=== PATIENT | female | born 1935 | race Caucasian/White ===

== ENCOUNTER 2016-05-11 09:45 | Inpatient (IN) | payer MEDICARE ==
[2016-05-11] MEDS ORDERED: FENTANYL 100 MCG/2 ML VIAL IV PRN ×2 (10:01)
[2016-05-11] MEDS ORDERED: HYDROmorphone 1 MG INJECTION IV PRN ×2 (10:01)
[2016-05-11] MEDS ORDERED: LABETALOL 20 MG/4 ML SYRINGE IV PRN (10:01)
[2016-05-11] MEDS ORDERED: MEPERIDINE 25 MG/ML TUBEX IV PRN (10:01)
[2016-05-11] MEDS ORDERED: ONDANSETRON HCL 4 MG ODT TAB PO PRN (10:01)
[2016-05-11] MEDS ORDERED: ONDANSETRON HCL 4 MG/2 ML VIAL IV PRN ×2 (10:01→17:29)
[2016-05-11] MEDS ORDERED: hydrALAZINE 20 MG/ML VIAL IV PRN (10:01)
[2016-05-11 10:23] LABS: AUTOMATED BASOPHIL 0.4 % (0-2); AUTOMATED EOSINOPHIL 1.6 % (0-5); AUTOMATED LYMPH 25.7 % (17-44); AUTOMATED MONOCYTE 10.3 % (3-10); MPV 7.6 fL (7.4-10.4)
[2016-05-11] MEDS ORDERED: ERTAPENEM 1 GM in NS 100 ML IV ONE (10:30)
[2016-05-11 10:37] LABS: BLOOD UREA NITROGEN 14 MG/DL (7-17); CALC CORRECTED 9.3 MG/DL (8.4-10.2); CALCIUM 9.2 MG/DL (8.4-10.2); CALCULATED OSMOLALITY 273 MOs/Kg (270-290); CHLORIDE 103 mEq/L (98-107); GLUCOSE 79 MG/DL (70-99); SODIUM LEVEL 142 mEq/L (137-146); TOTAL PROTEIN 7.2 G/DL (6.3-8.2)
[2016-05-11] MEDS ORDERED: ALVIMOPAN 12 MG CAP PO ONE (11:00)
[2016-05-11] MEDS ORDERED: ONDANSETRON HCL 4 MG/2 ML VIAL IV ONE (12:04)
[2016-05-11] MEDS ORDERED: PROPOFOL 200 MG/20 ML VIAL IV ONE (12:04)
[2016-05-11] MEDS ORDERED: EPHEDrine 50 MG/ML VIAL IM ONE (12:04)
[2016-05-11] MEDS ORDERED: NEOSTIGMINE 1 MG/1 ML (1:1000) INJ 10 ML MDV IM ONE (12:04)
[2016-05-11] MEDS ORDERED: ROCURONIUM 50 MG/5 ML VIAL IV ONE (12:04)
[2016-05-11] MEDS ORDERED: LIDOCAINE 4% 5 ML AMPULE NEB ONE (12:04)
[2016-05-11] MEDS ORDERED: NIMBEX 10 MG/5 ML VIAL IV ONE (12:04)
[2016-05-11] MEDS ORDERED: FENTANYL 100 MCG/2 ML VIAL IV ONE (12:04)
[2016-05-11] MEDS ORDERED: KETOROLAC TROMETH 30 MG/ML VIAL IM ONE (12:04)
[2016-05-11] MEDS ORDERED: MIDAZOLAM 2 MG/2 ML VIAL IV ONE (12:04)
[2016-05-11] MEDS ORDERED: DEXAMETHASONE 4 MG/ML VIAL IV ONE (12:04)
[2016-05-11] MEDS ORDERED: hydrALAZINE 20 MG/ML VIAL IM ONE (12:04)
[2016-05-11] MEDS ORDERED: GLYCOPYRROLATE 1 MG VIAL IM ONE (12:04)
[2016-05-11] MEDS ORDERED: HYDROmorphone 2 MG/ML VIAL IM ONE (12:04)
[2016-05-11] MEDS ORDERED: BUPIVACAINE 0.5% 30 ML VIAL ONE (12:08)
--- NOTE | 2016-05-11 13:28 | HIM.ANES ---
Anesthesia Evaluation & Plan Diagnoses: MALIGNANT NEOPLASM OF RECTUM (05/11/16) Consented Procedure: LAPAROSCOPIC LOW ANTERIOR RESECTION OF COLON-POSSIBLE OPEN - Focused Review of Systems Cardiac History: Yes: Hx Hypertension, Hx Heart Attack (1995), Hx Cardiac Catheterization (2013), Hx Cardiac Disorders, Hx Abnormal Cholesterol/ Hyperlipidemia, Hx Coronary Artery Bypass Graft (1995 CABG X 3) No: Hx Angina, Hx Cardia Arrhythmia, Hx Abdominal Aortic Aneurysm, Hx Congestive Heart Failure, Hx Deep Vein Thrombosis HEENT: Yes: Cataracts (BILATERAL), Hx Vision Problem (WEARING GLASSES), Other HEENT Problems Hx Other HEENT Problems: upper dentures Respiratory: Yes: Hx Snoring No: Hx Sleep Apnea, Hx Home O2, Hx Pneumonia Gastrointestinal: Yes: Hx Gastroesophageal Reflux Disease (Controlled), Hx Gastrointestinal Disorders, Hx Colonoscopy (2015), Hx Endoscopy (UNSURE-- PATIENT THINKS ONE DONE) Neurological/Musculoskeletal: Yes: HX Cerebrovascular Accident (LIGHT 2013), Hx Numbness, Tingling, Weakness in Arms & Legs (TINGLING LEGS), Hx Neurological Disorders No: Hx Migraine Physiological: No Hx Mental/Emotional Disorders Blood/Autoimmune: Yes: Hx Anemia (WITH FIRST ) No: Hx Blood Transfusions, Hx AIDS, Hx Hepatitis (type) Smoking Status: Former smoker Past Social History: Denies: Substance Use Disorder Hx Stress Test (date): Yes (01-19-16) Surgical History: Yes: CABG (1995 CABG X 3), Hip (RIGHT), Other (Hip surgery) No: T&A - Focused Physical Exam NPO since: 05/10/2016 2200 Mallampati: Class II Thyromental Distance: Greater than 3 Neck: Full Range of Motion Dental: Removable Dental Work Cardiovascular/Chest: Normal Respiratory: Lungs clear Any problems with anesthesia, including nausea and vomiting?: No Any relatives with a history of Malignant Hyperthermia?: No Beta Tami given (if appropriate): N/A Other: Problem List Problem Status Onset Abnormal urinalysis Acute Anemia associated with acute blood loss Acute GI bleeding Acute Hematochezia Acute Hypertension Acute Coronary artery disease Chronic CBC/BMP/Other 05/11/16 10:15 05/11/16 10:15 Allergies Allergy/AdvReac Type Severity Reaction Status Date / Time oxycodone Allergy Nausea/Vomi Verified 05/11/16 12:07 ting Home Medications Medication Instructions Recorded Last Taken Type Atorvastatin Calcium [Lipitor] 80 mg PO QHS 11/24/15 01/19/16 19:00 History Pantoprazole Sodium 40 mg PO DAILY #30 tab 11/26/15 05/09/16 Rx Atenolol [Tenormin] 50 mg PO DAILY 01/09/16 05/10/16 23:00 History Clopidogrel Bisulfate [Plavix] 75 mg PO DAILY 01/09/16 05/06/16 History Meloxicam [Mobic] 7.5 mg PO BID 04/27/16 05/09/16 History Height and Weight Patient's height 5 ft 7 in Patient's weight 57.153 kg BMI 21.7 - Anesthetic Plan Anesthesia Type: General ASA Class: 3 -: I have examined this patient and reviewed the medical record. The patient has been assessed prior to anesthesia. Risks and benefits of anesthesia and anesthetic technique options have been discussed and all questions answered. The patient accepts the risk and desires me to proceed with the planned anesthetic.
[2016-05-11 13:30] LABS: LEUKOCYTES/URINE NEG (NEGATIVE); NITRITE/URINE NEG (NEGATIVE); RBC/URINE 0-2 (0-5); URINE OCCULT BLOOD NEG (NEG/TRACE); WBC/URINE 0-2 (0-5)
--- NOTE | 2016-05-11 15:21 | HIMOPRPT ---
DATE OF PROCEDURE: 05/11/16 PREOPERATIVE DIAGNOSIS: Rectal cancer, for the clinical staging please see the history and physical POSTOPERATIVE DIAGNOSIS: Same, final pathology pending PROCEDURE: Laparoscopic low anterior colon resection with primary anastomosis, laparoscopic mobilization of splenic flexure, rigid proctosigmoidoscopy with tattooing of rectal area SURGEON: David Hinojosa M.D. ANESTHESIA: General anesthesia SPECIMEN: Sigmoid colon and portion of proximal rectum pathology. SPONGE COUNT: Correct. PACKINGS AND DRAINS: Telfa packing to the upper midline abdominal incision. PATIENT CONDITION: Stable. ESTIMATED BLOOD LOSS: 75 cc. OPERATIVE FINDINGS AND TECHNIQUE: With consent, the patient was brought to the operative suite, placed in supine position. Following general anesthesia, Dalton catheter was placed. An orogastric tube was placed. Rigid proctosigmoidoscopy was performed. At approximately 15 cm up there is a small polypoid area. There is also some puckering of the rectal mucosa. There is no evidence of any large mass lesion. The area near the polypoid lesion was tattooed with Diana ink. The abdomen and perineal/anal areas were prepped and draped in usual fashion. Upper midline incision was made. Dissection was carried along on the musculofascial layers down the level of the fascia and peritoneal cavity was entered under direct vision. The GelPort apparatus was placed. Abdominal cavity was insufflated with carbon dioxide. Additional trocars were then placed. A 12-mm trocar was placed in the right lower quadrant and a 5-mm trocar was placed in the right suprapubic area. In each case, skin incision was made with skin knife and trocars in the peritoneal cavity under videoscopic guidance. Liver was palpably normal as was the gallbladder. Visualized portion of stomach was palpably normal as well. Appendix appeared normal. Uterus and ovaries appeared normal. Visualized portion of the small intestine was normal. The right, transverse, and left colon appeared normal as well. The tattooed area was in the rectal area just below the sacral promontory. The inferior mesenteric vessels/sigmoid vessels were isolated. Left ureter was identified during its course and was not traumatized during the course of dissection. Inferior mesenteric/sigmoid vessels were stapled across using the laparoscopic [place] stapling device with a vascular load. Mobilization of splenic flexure was then undertaken, this proceeded without incident. Following this, pelvic dissection was undertaken. Perineum was scored using Harmonic scalpel. Distal dissection was taken down towards the rectal vascular stalks which were ligated with the Harmonic scalpel. The proposed area of transection was well below the tattoo area. It measured at least 5 cm below the tattooed area grossly. Mesenteric vessels were ligated and divided with a combination of the Harmonic Scalpel as well the vascular stapling device. The rectum was stapled across using the stapling device as well. The colon was exteriorized. Proximal resection margin was identified and was freed up. Pursestring device was placed around this. Sutures were placed to make the pursestring. Colon was cut, and specimen was passed off as the sigmoid colon. Serial sizing was then undertaken with the sizing device, the 29 EEA sizer fitted well and a 29 EEA stapling device was chosen for the anastomosis. The anvil was placed in the proximal colon and the pursestring device was tied around this. Following this, the assistant engineer went to the perineal area, and serial dilatation of the rectal stump was accomplished using the sizers. The 29 EEA stapling device was then placed up the anal canal. The post was brought out to just above the staple line of the rectal stump. The post was attached the anvil. The stapler device was closed, fired, and brought up the anal area. The 2 excellent complete donuts were noted. The pelvic area then irrigated with saline and the rigid proctosigmoidoscope was then placed through the anal verge, and air water leak test was performed, showing no evidence of any bubbles, no evidence of any air leak. Pelvic area was suctioned free. Abdominal cavity had been irrigated and dried . There was no bloody drainage. Hemostasis was achieved. Seprafilm was placed in the abdominal cavity. The fascia of the 12 mm trocar site was closed with 0 Vicryl suture in interrupted fashion. The midline upper abdominal incision and musculofascial layers were closed using 1 PDS loop in a running fashion. Wound was irrigated and dried. Each incision was injected with 0.5% Marcaine. Skin approximation of all wounds was accomplished using 4 O Monocryl in a subcuticular fashion. Dermabond , 2 x 2 gauze, and Tegaderm dressings were applied to all the wounds. Findings as described. At termination of procedure, all instrument, sponge, and needle counts were correct. Final pathology is pending.
[2016-05-11] MEDS ORDERED: MORPHINE PCA 50 ML IV ONE (16:50)
--- NOTE | 2016-05-11 17:05 | SC.ANESPOS ---
Post-Anesthesia Note LOC: Fully Awake Post-Anesthesia Assessment: Awake, Returned to Baseline, Hemodynamically Stable , Pain Control Adequate Phase I & II Recovery Complete: Yes Apparent Anesthesia Complication: No : N - Vital Signs Blood Pressure: 186/86 Pulse: 74 Resp Rate: 10 O2 Sat: 98 Temp: 97.1 F
[2016-05-11] MEDS ORDERED: IBUPROFEN 600 MG TAB PO PRN (17:29)
[2016-05-11] MEDS ORDERED: MORPHINE PCA 50 ML IV PRN (17:29)
[2016-05-11] MEDS ORDERED: ACETAMINOPHEN 325 MG/TAB TABLET PO PRN (17:29)
[2016-05-11] MEDS ORDERED: ZOLPIDEM TARTRATE 5 MG TAB PO PRN (17:29)
[2016-05-11] MEDS ORDERED: PROMETHAZINE 25 MG/ML VIAL IV PRN (17:29)
[2016-05-11] MEDS ORDERED: DIPHENHYDRAMINE 25 MG CAP PO PRN (17:29)
[2016-05-11] MEDS ORDERED: LORAZEPAM 2 MG/ML VIAL IV PRN (17:29)
[2016-05-11] MEDS ORDERED: HYDROCODONE 5 MG/ACETAMIN 325 MG TAB PO PRN (17:29)
[2016-05-11] MEDS ORDERED: Aluminum;Magnesium;Simethicone 30 ML UDC PO PRN (17:29)
[2016-05-11] MEDS ORDERED: ACETAMINOPHEN 650 MG SUPP PR PRN (17:29)
[2016-05-11] MEDS: LR 1,000 ML IV SCH (17:50)
[2016-05-11 18:27] VITALS: BMI 20.3
[2016-05-11] MEDS: Famotidine 20 mg/50 ml RTU 20 MG/50 ML IVB IV SCH (18:37)
[2016-05-11] MEDS ORDERED: Vaccine Screening Complete SCH (19:00)
[2016-05-12] MEDS: ATORVASTATIN 80 MG TAB PO SCH ×2 (03:20→21:28)
[2016-05-12] MEDS: ENOXAPARIN 40 MG/0.4 ML PFS SQ SCH (03:27)
[2016-05-12] MEDS: Famotidine 20 mg/50 ml RTU 20 MG/50 ML IVB IV SCH ×2 (06:33→17:08)
[2016-05-12 07:41] LABS: MPV 7.6 fL (7.4-10.4)
[2016-05-12] MEDS: LR 1,000 ML IV SCH ×3 (07:49→21:54)
[2016-05-12] MEDS: ATENOLOL 50 MG TAB PO SCH (08:05)
[2016-05-12] MEDS: ALVIMOPAN 12 MG CAP PO SCH ×2 (08:05→21:28)
[2016-05-12 08:08] LABS: BLOOD UREA NITROGEN 16 MG/DL (7-17); CALCIUM 8.8 MG/DL (8.4-10.2); CALCULATED OSMOLALITY 268 MOs/Kg (270-290); CHLORIDE 101 mEq/L (98-107); GLUCOSE 160 MG/DL (70-99); SODIUM LEVEL 137 mEq/L (137-146)
--- NOTE | 2016-05-12 09:57 | PCM.SURGRO ---
- Subjective Post Op Day: 1 Patient: Reports: Still having pain, Nausea, Afebrile. Denies: Vomiting, Shortness of breath - Objective / Physical Exam Vital Signs: Temperature: 97.9 F (05/12/16 09:18) HR: 70 (05/12/16 09:18)RR: 18 (05/12/16 09: 18) BP: 163/77 (05/12/16 09:18)Pulse Ox: 96 (05/12/16 09:18) General: Alert Respiratory: Normal - CTA Cardiovascular: Regular rate and rhythm Gastrointestinal: Soft, Bowel Sounds, Tender (Mild and diffuse without rebound) . negative: Distended Laboratory/Diagnostics Reviewed: Laboratory Results - last 24 hr 05/11/16 05/11/16 05/11/16 10:15 10:15 10:15 WBC 5.6 RBC 4.42 Hgb 12.1 Hct 37.1 MCV 84 MCH 27.5 MCHC 32.8 L RDW 16.8 H Plt Count 252 MPV 7.6 Neut % (Auto) 62.0 Lymph % (Auto) 25.7 Lynn % (Auto) 10.3 H Eos % (Auto) 1.6 Baso % (Auto) 0.4 Absolute Neuts (auto) 3.47 Absolute Lymphs (auto) 1.40 Sodium 142 Potassium 3.6 Chloride 103 Carbon Dioxide 29 Anion Gap 14 BUN 14 Creatinine 0.90 Estimated GFR (MDRD) > 60 Glucose 79 Calculated Osmolality 273 Calcium 9.2 Corrected Calcium 9.3 Total Bilirubin 1.3 AST 26 ALT 34 Alkaline Phosphatase 88 Total Protein 7.2 Albumin 3.9 Urine Color Urine Clarity Urine pH Ur Specific [place] Urine Protein Urine Glucose (UA) Urine Ketones Urine Occult Blood Urine Nitrite Urine Bilirubin Urine Urobilinogen Ur Leukocyte Esterase Urine RBC Urine WBC Urine Bacteria Urine Mucus Blood Type O POSITIVE Antibody Screen Negative 05/11/16 05/12/16 05/12/16 12:25 07:05 07:05 WBC 7.6 RBC 3.59 L Hgb 9.9 L D Hct 30.1 L MCV 84 MCH 27.6 MCHC 33.0 RDW 16.2 H Plt Count 199 MPV 7.6 Neut % (Auto) Lymph % (Auto) Lynn % (Auto) Eos % (Auto) Baso % (Auto) Absolute Neuts (auto) Absolute Lymphs (auto) Sodium 137 Potassium 3.8 Chloride 101 Carbon Dioxide 26 Anion Gap 14 BUN 16 Creatinine 0.60 Estimated GFR (MDRD) > 60 Glucose 160 H Calculated Osmolality 268 L Calcium 8.8 Corrected Calcium Total Bilirubin AST ALT Alkaline Phosphatase Total Protein Albumin Urine Color Yellow Urine Clarity Hazy Urine pH 5.0 Ur Specific [place] 1.025 Urine Protein Neg Urine Glucose (UA) Neg Urine Ketones 2+ H Urine Occult Blood Neg Urine Nitrite Neg Urine Bilirubin Neg Urine Urobilinogen <2.0 Ur Leukocyte Esterase Neg Urine RBC 0-2 Urine WBC 0-2 Urine Bacteria 1+ H Urine Mucus Mod H Blood Type Antibody Screen - Assessment and Plan (1) Rectal cancer Resolved C20 - MALIGNANT NEOPLASM OF RECTUM Present on Admission: Yes Comment/Plan: Postop day 1. From laparoscopic low anterior colon resection with primary anastomosis. She is recovering quite well. She is off oxygen. Continue IV fluid hydration. Continue REAL ESTATE APPRAISER control for pain. Continue mechanical and chemo prophylaxis for DVT prevention. Get Dalton out today. Start to mobilize with progressive ambulation. Await return of bowel function. Await final pathology. Follow hemoglobin and hematocrit. Follow her routine blood work and change IV fluids if necessary. Continue medical management of comorbid medical conditions.
[2016-05-12] MEDS ORDERED: CHAPSTICK LIP BALM ONE (21:34)
[2016-05-13] MEDS: Famotidine 20 mg/50 ml RTU 20 MG/50 ML IVB IV SCH ×2 (06:07→17:35)
[2016-05-13] MEDS: ENOXAPARIN 40 MG/0.4 ML PFS SQ SCH (06:09)
[2016-05-13] MEDS: ALVIMOPAN 12 MG CAP PO SCH (07:24)
[2016-05-13] MEDS: ATENOLOL 50 MG TAB PO SCH (07:24)
[2016-05-13 08:26] LABS: BLOOD UREA NITROGEN 16 MG/DL (7-17); CALCIUM 8.8 MG/DL (8.4-10.2); CALCULATED OSMOLALITY 267 MOs/Kg (270-290); CHLORIDE 102 mEq/L (98-107); GLUCOSE 96 MG/DL (70-99); SODIUM LEVEL 138 mEq/L (137-146)
--- NOTE | 2016-05-13 08:36 | PCM.SURGRO ---
- Subjective Post Op Day: 2 Patient: Reports: Still having pain, Flatus, Bowel Movement, Afebrile. Denies: Nausea, Vomiting, Shortness of breath - Objective / Physical Exam Vital Signs: Temperature: 98.3 F (05/13/16 05:20) HR: 87 (05/13/16 05:20)RR: 18 (05/13/16 08: 00) BP: 135/68 (05/13/16 05:20)Pulse Ox: 93 (05/13/16 05:20) General: Alert Respiratory: Normal - CTA Cardiovascular: Regular rate and rhythm Gastrointestinal: Soft, Bowel Sounds, Tender (Predominantly on the left side but without rebound). negative: Distended Laboratory/Diagnostics Reviewed: All labs which were ordered to be done at 6:00 a.m. are still pending today. - Assessment and Plan (1) Rectal cancer Resolved C20 - MALIGNANT NEOPLASM OF RECTUM Present on Admission: Yes Comment/Plan: Postop day 2. Bowel function is returning slowly. Start full liquids today. Await pathology. Continue mechanical and chemo prophylaxis for DVT prevention. The patient has had some mild urinary retention which is not unexpected. Continue to mobilize more and straight catheterization as needed. Unfortunately , even though it was ordered yesterday at 9:54 a.m., the patient has not been ambulating as ordered. This is concerning to me. This can detrimentally affect this patient's care and outcome. This seriousness of this is discussed with nursing today. The patient should be mobilized with ambulation today. Await lab data. Labs were ordered to be done and drawn at 6:00 a.m., however they are all still pending today at 8:35 a.m.. Continue medical management of the patient's comorbid conditions.
[2016-05-13] MEDS ORDERED: Pharmacy Change IV Fluid Rate to KVO XX SCH (09:00)
[2016-05-13] MEDS: LR 1,000 ML IV SCH ×2 (11:55→22:16)
[2016-05-13] MEDS: ATORVASTATIN 80 MG TAB PO SCH (22:18)
[2016-05-14] MEDS: LR 1,000 ML IV SCH (01:19)
[2016-05-14] MEDS: Famotidine 20 mg/50 ml RTU 20 MG/50 ML IVB IV SCH (06:01)
[2016-05-14] MEDS: ENOXAPARIN 40 MG/0.4 ML PFS SQ SCH (06:01)
[2016-05-14 06:47] VITALS: BP 151/79; PULSE 70; TEMP 98.6
[2016-05-14] MEDS: ATENOLOL 50 MG TAB PO SCH (09:20)
--- NOTE | 2016-05-14 10:20 | PCM.DCS92 ---
- Final/Secondary Discharge Diagnosis (1) Rectal cancer Resolved C20 - MALIGNANT NEOPLASM OF RECTUM Present on Admission: Yes Plan/Goal/Comment: Postop day 3. Bowel function has returned. Pathology is still pending. Plan discharge home today. Follow up in the office. She had some mild urinary retention which now has resolved. She has had no nausea or vomiting. She is voiding well. She is moving her bowels. Instructions were discussed with the patient and her daughter. Discharge Disposition: Home Discharge Condition: Stable Cognitive Discharge Status: Unimpaired Fuctional Discharge Status: Independent Physician Follow up/Referrals: David Hinojosa MD [Staff Physician] - Keep Scheduled Appt New Prescriptions: Promethazine HCl [Phenergan] 12.5 mg PO Q6 PRN #30 tablet PRN Reason: Nausea/Vomiting Hydrocodone/Acetaminophen [Vicodin 5-300 mg Tablet] 1 tab PO Q4H PRN #40 tablet PRN Reason: Pain Diet at Discharge: Other (Full liquid) Activity: No Heavy Lifting, No Driving Call Office For: Worsening Symptoms, Wound is Draining Pus, Fever over 101 F Discontinue use of:: Alcohol, All Illegal Substances, All Types of Tobacco - DC Summary Notes Hospital Course Note:: Discharge summary on patient named PENNY TORRES admitted to [facility] on 05/11/16 by David Hinojosa MD. Date of discharge is 05/14/2016. Patient was admitted and underwent a laparoscopic low anterior colon surgery for rectal cancer. Please see Dr. Hinojosa's history and physical for full details. The patient recovered quite well. She had no evidence of ileus. She had no nausea or vomiting during her hospitalization. She did have a Dalton that remained in for 1 postoperative day. She then suffered from some mild urinary retention which resolved by postoperative day 3. By postoperative day 3. , she was voiding without difficulty. She was ambulating well. She was tolerating full liquid diet well. She had some mild postoperative anemia. However hemoglobin stabilized at 8.8. She was never transfused any blood. By postop day 3., the patient was deemed stable candidate for discharge home. Instructions were discussed at length. Please see the electronic medical record discharge summary for full details regarding discharge instructions. Instructions were discussed in detail with the patient and the daughter. They admitted full understanding to the discharge instructions at the time of discharge. She will be followed up in the office. The patient was subsequently discharged in stable condition. Wound Care Surgical Site: Yes Site Description (if applicable): Abdomen May Shower Starting:: Today Remove Clear Dressing In How Many Days?: Seven Ability To Perform Care (if applicable): Yes - Physical Exam Vital Signs: Initial Vitals Temperature 97.1 F L 05/11/16 15:23 Pulse Rate 85 05/11/16 15:23 Respiratory Rate 8 L 05/11/16 15:23 Blood Pressure 121/57 L 05/11/16 15:23 Pulse Oxygen Saturation 99 05/11/16 15:23 Constitutional: No apparent distress Respiratory: Normal - CTA Cardiovascular: Normal - GI Auscultation: Normal Palpation: Normal Tenderness: Mild (At the incisions)
== END 2016-05-14 12:05 | disposition home or self-care (01) | DRG 330 ==
LOC: SDC 09:45 → MPS3 17:38
PROVIDERS: ADMIT Surgery Vascular Surgery; ATTEND Surgery Vascular Surgery
PROC: 0DBP4ZZ Excision of Rectum, Percutaneous Endoscopic Approach (ICD-10-PCS; 2016-05-11)
PROC: 0DTN4ZZ Resection of Sigmoid Colon, Percutaneous Endoscopic Approach (ICD-10-PCS; principal; 2016-05-11 11:05)
DX: C20 Malignant neoplasm of rectum (principal); I25.810 Atherosclerosis of coronary artery bypass graft(s) without angina pectoris; D64.9 Anemia, unspecified; R33.9 Retention of urine, unspecified; Z79.899 Other long term (current) drug therapy; R63.4 Abnormal weight loss; Z98.61 Coronary angioplasty status; Z79.82 Long term (current) use of aspirin; Z95.1 Presence of aortocoronary bypass graft; K21.9 Gastro-esophageal reflux disease without esophagitis; E78.5 Hyperlipidemia, unspecified; E78.00 Pure hypercholesterolemia, unspecified; I25.2 Old myocardial infarction; Z09 Encounter for follow-up examination after completed treatment for conditions other than malignant neoplasm; Z87.891 Personal history of nicotine dependence; Z86.73 Personal history of transient ischemic attack (TIA), and cerebral infarction without residual deficits
CPT/HCPCS: 51701; 51798; 80048; 80053; 81001; 85014; 85018; 85025; 85027; 86850; 86900; 86901; 96372; G0237; J0360; J1100; J1170; J1335; J1650; J1885; J2060; J2250; J2405; J2710; J3010; J3490; J7030; S0028